=== PATIENT | male | born 1950 ===

== ENCOUNTER 2022-06-07 12:23 | Inpatient (IN) | payer OTHER ==
[2022-06-07] MEDS ORDERED: ALBUTEROL 2.5 MG/3 ML NEB SOL NEB PRN (13:59)
[2022-06-07] MEDS ORDERED: QUETIAPINE 25 MG TAB PO PRN (14:12)
[2022-06-07] MEDS ORDERED: chlordiazePOXIDE HCl 25 MG CAP PO PRN (14:15)
[2022-06-07] MEDS ORDERED: MAGNESIUM HYDROXIDE 8% 30 ML PO PRN (14:17)
[2022-06-07 17:48] VITALS: BMI 18.1
[2022-06-07 18:59] LABS: Specific Gravity 1.011 (1.005-1.030); Urine Bacteria None Seen /HPF (<20); Urine Bilirubin NEGATIVE (Negative); Urine Blood Negative (Negative); Urine Clarity Clear (Clear); Urine Color Light-Yellow (Yellow); Urine Glucose NEGATIVE (Negative); Urine Mucus Slight /HPF (None Seen); Urine Protein NEGATIVE (Negative); Urine RBC <5 /HPF (None Seen); Urine Urobilinogen Normal (Normal)
[2022-06-07] MEDS: DOXYCYCLINE 100 MG CAP PO SCH (19:45)
[2022-06-07] MEDS: TAMSULOSIN 0.4 MG SR CAP PO SCH (19:45)
[2022-06-07] MEDS: GUAIFENESIN 600 MG SA TAB PO SCH (19:45)
[2022-06-07] MEDS: DOCUSATE NA 100 MG CAP PO SCH (19:45)
--- NOTE | 2022-06-07 23:07 | HP ---
Date of Admission: 06/07/2022 Time Of Service: 1:00 p.m. Chief Complaint: "Fell and broke my right hip." History Of Present Illness: Mr. Knutson is a 72-year-old patient with a history of a remote stroke. The stroke occurred in 2018, and he has recovered completely and also has a history of heavy alcohol use that resulted in him actually falling onto a hard surface and hitting his right hip. The fall oc curred in mid to late April and he was seen in hospital on May 20 and had bipolar hemiarthropla sty. He was noted to be at risk for alcohol withdrawal, received multivitamin, folic acid, hydration , and thiamine along with alcohol withdrawal prophylaxis. Following surgery, he was at a maximal ass istance level for all modalities and was transferred to the swing bed for postop physical therapy. H owever, he did not thrive and he developed a leukocytosis for which infectious disease recommended do xycycline and Levaquin for 7 days. He is currently receiving that. He has comorbid anemia possibly related to chronic alcohol use. As a result of his comorbid conditions, significant anemia and need for multiple antibiotics and maximal assistance, he is determined to be an appropriate candidate for acute inpatient rehabilitation. If he is to be discharged home or in a alf, he would lik ganesh not thrive. Past Medical History: Noted. Prostate hypertrophy, constipation, tobacco dependency. Family History: Noncontributory. Allergies: NO KNOWN DRUG ALLERGIES. Social History: The patient apparently drinks alcohol on a regular basis and heavily. Current Medications: Tylenol 650 every 4 hours as needed, albuterol nebulizer 2.5 mg every 4 hours, Norvasc 2.5 mg daily, vitamin C 500 mg daily, aspirin 81 mg daily, Librium 25 mg 3 times a day, Colac e 100 mg twice daily, Vibramycin 100 mg twice daily, Lovenox 40 mg subcutaneously daily, folic acid 1 mg daily, Mucinex 600 mg twice daily. Levofloxacin 500 mg daily, again end on the , he started o n the . Nicotine patch 21 mg daily, Seroquel 25 mg at bedtime, Senokot S 2 at bedtime, Flomax 0.4 mg daily, thiamine 100 mg daily, Ultram 50 mg daily. Laboratory Studies: His urinalysis done today was completely normal. COVID testing was negative. W elizabeth blood cell count 14.6, hemoglobin 11.7, hematocrit 35.6, platelets 644. Sodium 137, potassium 3 .5, glucose 108, BUN 13, creatinine 0.73. X-ray Imaging: X-ray on the of the chest showed mild lower lobe opacities bilaterally favoring atelectasis and scarring. No evidence of acute cardiopulmonary abnormalities. The very first chest x-ray showed no evidence of cardiopulmonary abnormalities, and on June 01, mild central congestion noted. Review of Systems: Mr. Knutson reports some pain at around 2 to 3 when lying in bed, and up to 7 when standing on the rig ht hip where he has his fracture. Otherwise, he denies pain throughout the rest of his body. He rep orts no recent fevers, chills. Some mild arthralgias and myalgias, but no rash, headache, psychiatri c complaints. No gastrointestinal or genitourinary complaints. No dermatologic complaints. Physical Examination: Vital Signs: Blood pressure of 137/80, pulse 57, respiratory rate 18, temperature 97.6, oxygen satur ation 95%. Weight 129 pounds and 9.6 ounces, height 5 feet 11 inches, BMI 18. General: Mr. Knutson is a 72-year-old patient who is lying in bed, has mild pain in the right hip, bu t in his surgical site, there is some jose in place and these were removed. He is normocephalic a nd atraumatic. Sclerae anicteric. Oropharynx is pink and moist. Neck: Supple. Chest: Clear. Heart: Regular. Extremities: Show no significant edema except slight on the right lower extremity nothing on the lef t. No cyanosis or clubbing. Neurological: He is alert and oriented to situation, place, and person. He does follow commands haresh ropriately. Cranial nerves; no focal deficits there. Motor examination, upper extremities, no focal deficits. He does have a stocking-glove loss light touch temperature in lower extremities. He has some mild pain related weakness in the right proximal upper extremity that is with hip flexion becaus e of the recent surgery. Otherwise, he has good strength in the distal right lower extremity and in the left lower extremity altogether. Coordination is slow, but intact. In terms of his gait, he was able to ambulate 140 feet with contact guard assistance using a rolling walker. Current Level Of Functioning: As noted, he did 140 feet with contact guard assistance using a bill g walker. Emphasis was placed on upright posturing for proper gait mechanics. He did have a kyphoti c posture. He also self propelled a wheelchair with lower extremities 300 feet with physical therapi st in tow. He did stand for pivot transfers with minimal assistance using a rolling walker, did supi ne to stand transfers with minimal assistance for lower extremity assistance required. He was evalua glenn by speech therapy and will be seen on a daily basis. Rehabilitation And Medical Assessment And Plan: Mr. Knutson is a 72-year-old patient with a right hip fracture status post bipolar hemiarthroplasty. He has chronic alcohol use and is on alcohol withdra wal prophylaxis. He has tobacco dependency and is on nicotine patch. He has anemia and has iron sup plementation. He has risk of DVT and is on Lovenox. He does have Senokot for constipation, Tylenol and tramadol for pain. He has Seroquel for sleep at night. He is continuing Vibramycin and Levaquin , total of 7 days for leukocytosis. There is no evidence of urinary tract infection on his urinalysi s here is normal. Chest x-ray does not show pneumonia. Note: His rehabilitation impairment category is 07, orthopedic, right lower extremity fracture, and his impairment group code is 08.11, status post unilateral hip fracture. Etiologic diagnosis; subcap ital right femoral neck fracture with marked deformity. Active comorbidities: Alcohol abuse, dysplasia, hypoxia, and tobacco abuse. Note: Risk of medical complications has included aspiration pneumonia, malnutrition, dehydration, re spiratory distress, cardiopulmonary complications and falls. The active comorbidities are as noted. Impact Of Comorbidities: At this point, his alcohol withdrawal is at this point stable. He is on Li brium, and addition to folic acid, thiamine, multivitamin, his vitals do not show any evidence of wit hdrawal. He will be carefully watched. He also has nicotine dependence. He has had tobacco depende nce. He already has nicotine patch. Rehab Plan: He will have 3.5 hours 5-7 days of physical, occupational, and speech therapy to improve his cognitive functioning, his thinking, judgment, memory, his upper and lower body dressing, transf er and toileting, showering, and ambulating over 500 feet. Goal would be to do that with modified in dependence to independence and up and down 15 steps with modified independence to independence. Note , the patient has a good understanding of his process of admission to the inpatient rehabilitation un it. He has a great potential for improvement while he goes through physical, occupational, and speec h therapy. In addition, services from the Respiratory Department from Nutrition Services, Wound Care , and Psychology will be consulted as necessary. Given his complex condition, medical condition, and his orthopedic condition, it is not safe for him to be discharged to a lower level of care such as a nursing facility. Barriers To Discharge: At this point, his comorbidities are not effectively barriers stopping him fr om doing well discharge. However, his nutrition status will be evaluated. Tobacco dependency status and alcohol dependency status will be managed as noted. Estimated Length Of Stay: Up to 2 weeks. Disposition: Expected to be home. Prognosis: Good. Rehabilitation Goals: Began to be independent with upper and lower body dressing, toileting, to do a ll activities of daily living independently to ambulate over 500 feet independently, up and down 15 s teps independently and to have cognitive functioning to have good judgment, insight, and to stop drin sulema alcohol. I acknowledge that I personally performed a full physical examination on Mr. Knutson within 2 hours of him arriving in the inpatient rehabilitation unit and if determined to him to be able to tolerate th e above course of treatment at an intensive level for the time stated above. A detailed individualiz ed plan of care for him will be completed by hospital day 4, based on his pre-admission screen, history and physical, and the therapy evaluations. PEG Voice ID: [id number]
[2022-06-08 05:39] LABS: Absolute Lymphocytes (CBC) 2.1 K/uL (0.7-4.9); Hematocrit 32.7 % (39.6-49.0); Lymphocytes % 17.1 % (15.3-44.8); MCV 94.2 fL (80-100); MPV 9.4 fL (7.6-11.3); RBC Red Blood Cell Count 3.47 M/uL (4.33-5.43)
[2022-06-08] MEDS: ACETAMINOPHEN 325 MG TABLET PO PRN (05:42)
[2022-06-08 05:53] LABS: Albumin 2.3 g/dL (3.4-5.0); Magnesium 1.9 mg/dL (1.6-2.4); Potassium 3.7 mmol/L (3.5-5.1); Prealbumin 16.6 mg/dL (20-40)
[2022-06-08] MEDS: ENOXAPARIN 40 MG/0.4 ML SQ SCH (07:30)
[2022-06-08] MEDS: NICOTINE 21 MG/PAT TD SCH (08:46)
[2022-06-08] MEDS: DOXYCYCLINE 100 MG CAP PO SCH ×2 (08:48→19:44)
[2022-06-08] MEDS: GUAIFENESIN 600 MG SA TAB PO SCH ×2 (08:48→19:44)
[2022-06-08] MEDS: ASPIRIN EC 81 MG TAB PO SCH (08:48)
[2022-06-08] MEDS: DOCUSATE NA 100 MG CAP PO SCH ×2 (08:48→19:44)
[2022-06-08] MEDS: FOLIC ACID 1 MG TABLET PO SCH (08:48)
[2022-06-08] MEDS: THIAMINE HCL 100 MG TABLET PO SCH (08:49)
[2022-06-08] MEDS: AMLODIPINE 2.5 MG TAB PO SCH (08:49)
[2022-06-08] MEDS: ASCORBIC ACID 500 MG TABLET PO SCH (08:49)
[2022-06-08] MEDS: MULTIVITAMIN TAB PO SCH (08:49)
[2022-06-08] MEDS: levoFLOXacin 500 MG TAB PO SCH (09:48)
--- NOTE | 2022-06-08 10:49 | RAD REPORT ---
EXAM DESCRIPTION: RAD - Barium Swallow Modified - 06/08/2022 10:36 am CLINICAL HISTORY: CVA, COUGHING FINDINGS: ADMINISTERED: THIN, NECTAR, PUDDING, SOFT SOLID, REGULAR FINDINGS: Laryngeal penetration - Cleared with thin by straw No aspiration No other issues. swallow with in functional limits Fluoroscopy time 1.5 minutes. One fluoroscopic spot image obtained
[2022-06-08] MEDS ORDERED: ALBUTEROL 2.5 MG/3 ML NEB SOL NEB PRN (12:00)
[2022-06-08] MEDS: TAMSULOSIN 0.4 MG SR CAP PO SCH (19:44)
[2022-06-08] MEDS: ENSURE ENLIVE 237 ML CAN PO SCH (19:44)
--- NOTE | 2022-06-08 19:50 | PN ---
Date of Progress Note: 06/08/2022 Time Of Service: 1 p.m. Subjective: Mr. Knutson is doing well since his pain in the right hip where he had a fracture and chico gical repair, is down from about 7 to a 5 and is improving even as he ambulates. He has no new compl aints. Review of Systems: No fevers, chills, nausea, vomiting, mild myalgias, arthralgias. No rash, headache, weight change. No psychiatric issues. Physical Examination: Vital Signs: Blood pressure 134/71, pulse 88, respiratory rate 16, temperature 97.7, oxygen saturati on 93%. Weight 129 pounds, height 5 feet 11 inches, BMI 18. General: Mr. Knutson is ambulating with the physical therapist. He had walker, therapist walking beh ind. There is a chair if he needs to rest. He is doing well. HEENT: He is normocephalic, atraumatic. Sclerae are anicteric. Oropharynx is moist. Neck: Supple. Chest: Clear. Heart: Regular. Extremities: Show no edema, cyanosis. There is good hemostasis of the right hip surgical site. Sta ples have been removed. Laboratory Studies: White blood cell count 12.1 with neutrophils normal at 70, lymphocytes 17.1, hem oglobin 11.0, hematocrit 32.7. Chemistry: Sodium 140, potassium 3.7, chloride 98, carbon dioxide 25 , BUN 10, creatinine 0.8, prealbumin 16.5, albumin 2.3. Urinalysis normal. COVID-19 test is normal and is negative. X-ray Imaging: Today, he had a modified barium swallow study done. The study showed no aspiration, no other issues. Swallowing was within normal limits. Medications: Tylenol 650 every 4 hours as needed, albuterol nebulizer 2.5 mg every 4 hours as needed , Norvasc 2.5 mg daily, ascorbic acid or vitamin C 500 mg daily, aspirin 81 mg daily, Librium 25 mg 3 times daily as needed for agitation, Colace 100 mg twice daily, Lovenox 40 mg subcutaneously daily, folic acid 1 mg daily, guaifenesin 600 mg twice daily, Levaquin 5 mg daily, will end on 06/11/2022. Lidocaine patch to the right thigh daily, milk of magnesia 30 mL twice daily as needed, Centrum Silve r 1 tablet daily, nicotine patch 21 mg topically applied patch daily, Ensure Enlive 237 mL twice maricruz y, Seroquel 25 mg at bedtime, Senokot-S 2 at bedtime, Flomax 0.4 mg at bedtime, thiamine 100 mg daily , Ultram 50 mg every 6 hours as needed. Current Level Of Functioning: Currently, Mr. Knutson is able to ambulate 100 feet twice, 150 feet twi ce, and 250 was a contact guard assistance using a rolling walker. Mobilized a wheelchair 250 feet w ith upper extremity for strength and endurance. He did multiple stand and pivot transfers with conta ct guard assistance using a rolling walker. The speech pathologist did note in terms of his modified barium swallow, had a regular diet with thin liquids and no straw will be recommended as he did very well with the modified barium swallow study. Noted he demonstrated temporal and spatial orientation with use of external cues with 75% accuracy. He did verbal rehearsal to recall 2 of 3 pictures on f irst attempt and 3 of 3 on second and fourth attempts using space retrieval. Progress Towards Rehabilitation Goals: He is making excellent progress towards his goals of becoming independent with upper lobe while dressing, transferring, toileting, showering, ambulating 500 feet in modified independence and should be able to go up and down 15 steps with modified independence. Assessment And Plan: Mr. Knutson is a -puth-pek patient with right hip fracture, status pos t bipolar hemiarthroplasty, was doing very well. He has comorbid chronic alcohol use with potential alcohol withdrawal, which is much pass at this point. He has tobacco dependency that can have withdr awal via nicotine patch for that. He has anemia. He is on iron supplementation. He has DVT risk. He is on Lovenox. He has Senokot for constipation. Tylenol and tramadol for pain. He has Seroquel for insomnia. He does have Levaquin and tobramycin to continue for leukocytosis that will be done fo r a total of 7 days. Plan: Continue with physical, occupational, and speech therapy as noted. Continue with management of comorbid conditions as noted. Comorbidities That Impact His Rehabilitation Process: 1.At this point, risk of alcohol withdrawal and tobacco withdrawal is there, but those are mitigated . 2.There is pain from his right hip fracture that is mitigated. 3.He has leukocytosis which is noted while he is here and he will continue antibiotics, and also has anemia, continue iron supplementation and nutrition. LB/MODL Voice ID: [id number] Report ID: [id number]
[2022-06-09] MEDS: ACETAMINOPHEN 325 MG TABLET PO PRN (05:37)
[2022-06-09] MEDS: ENOXAPARIN 40 MG/0.4 ML SQ SCH (07:38)
[2022-06-09] MEDS: LIDOCAINE 4% PATCH TOP SCH (08:26)
[2022-06-09] MEDS: FOLIC ACID 1 MG TABLET PO SCH (08:26)
[2022-06-09] MEDS: ASPIRIN EC 81 MG TAB PO SCH (08:26)
[2022-06-09] MEDS: levoFLOXacin 500 MG TAB PO SCH (08:26)
[2022-06-09] MEDS: DOCUSATE NA 100 MG CAP PO SCH ×2 (08:27→19:58)
[2022-06-09] MEDS: AMLODIPINE 2.5 MG TAB PO SCH (08:27)
[2022-06-09] MEDS: GUAIFENESIN 600 MG SA TAB PO SCH ×2 (08:27→19:59)
[2022-06-09] MEDS: ASCORBIC ACID 500 MG TABLET PO SCH (08:27)
[2022-06-09] MEDS: DOXYCYCLINE 100 MG CAP PO SCH ×2 (08:27→19:59)
[2022-06-09] MEDS: THIAMINE HCL 100 MG TABLET PO SCH (08:27)
[2022-06-09] MEDS: MULTIVITAMIN TAB PO SCH (08:27)
[2022-06-09] MEDS: NICOTINE 21 MG/PAT TD SCH (08:28)
--- NOTE | 2022-06-09 08:28 | P.RH.PN ---
Estimated Length of Stay: 12 Expected Discharge Date: 06/19/22 Discharge Disposition Plan: Home Family Support: Yes [facility] Goal: Mobility, Transfers, Self Care Vital Signs: Last Vital Signs Temp 97.6 F 06/09/22 07:30 Pulse 95 H 06/09/22 07:30 Resp 18 06/09/22 07:30 BP 109/71 06/09/22 07:30 Pulse Ox 95 06/09/22 07:30 Laboratory: Laboratory Last Values WBC 12.10 K/uL (4.3-10.9) H 06/08/22 05:09 RBC 3.47 M/uL (4.33-5.43) L 06/08/22 05:09 Hgb 11.0 g/dL (13.6-17.9) L 06/08/22 05:09 Hct 32.7 % (39.6-49.0) L 06/08/22 05:09 MCV 94.2 fL (80-100) 06/08/22 05:09 MCH 31.7 pg (27.0-35.0) 06/08/22 05:09 MCHC 33.6 g/dL (32.0-36.0) 06/08/22 05:09 RDW 14.7 % (12.1-15.2) 06/08/22 05:09 Plt Count 678 K/uL (152-406) H 06/08/22 05:09 MPV 9.4 fL (7.6-11.3) 06/08/22 05:09 Neutrophils % 70.0 % (41.7-73.7) 06/08/22 05:09 Lymphocytes % 17.1 % (15.3-44.8) 06/08/22 05:09 Monocytes % 9.4 % (3.3-12.3) 06/08/22 05:09 Eosinophils % 2.5 % (0-4.4) 06/08/22 05:09 Basophils % 1.0 % (0-1.3) 06/08/22 05:09 Absolute Neutrophils 8.5 K/uL (1.8-8.0) H 06/08/22 05:09 Absolute Lymphocytes 2.1 K/uL (0.7-4.9) 06/08/22 05:09 Absolute Monocytes 1.1 K/uL (0.1-1.3) 06/08/22 05:09 Absolute Eosinophils 0.3 K/uL (0-0.5) 06/08/22 05:09 Absolute Basophils 0.1 K/uL (0-0.5) 06/08/22 05:09 Sodium 140 mmol/L (136-145) 06/08/22 05:09 Potassium 3.7 mmol/L (3.5-5.1) 06/08/22 05:09 Chloride 108 mmol/L (98-107) H 06/08/22 05:09 Carbon Dioxide 25 mmol/L (21-32) 06/08/22 05:09 Anion Gap 10.7 mEq/L (5.0-15.0) 06/08/22 05:09 BUN 10 mg/dL (7-18) 06/08/22 05:09 Creatinine 0.81 mg/dL (0.70-1.30) 06/08/22 05:09 Est GFR (CKD-EPI) 94 ml/min (=/>90) 06/08/22 05:09 Glucose 108 mg/dL (74-106) H 06/08/22 05:09 Calcium 8.9 mg/dL (8.5-10.1) 06/08/22 05:09 Magnesium 1.9 mg/dL (1.6-2.4) 06/08/22 05:09 Albumin 2.3 g/dL (3.4-5.0) L 06/08/22 05:09 Prealbumin 16.6 mg/dL (20-40) L 06/08/22 05:09 Urine Color Light-yellow (Yellow) 06/07/22 18:30 Urine Clarity Clear (Clear) 06/07/22 18:30 Urine pH 6.0 (5.0-7.0) 06/07/22 18:30 Ur Specific Humphrey 1.011 (1.005-1.030) 06/07/22 18:30 Glucose (UA)(Auto) Negative (Negative) 06/07/22 18:30 Urine Ketones Negative (Negative) 06/07/22 18:30 Urine Blood Negative (Negative) 06/07/22 18:30 Urine Nitrite Negative (Negative) 06/07/22 18:30 Urine Bilirubin Negative (Negative) 02/08/23 18:30 Urine Urobilinogen Normal (Normal) 06/07/22 18:30 Ur Leukocyte Esterase Negative Ghada/uL (Negative) 06/07/22 18:30 Urine RBC <5 /HPF (None Seen) 06/07/22 18:30 Urine WBC <5 /HPF (<5) 06/07/22 18:30 Ur Squamous Epith Cells None seen /HPF (None Seen) 06/07/22 18:30 Urine Bacteria None seen /HPF (<20) 06/07/22 18:30 Urine Mucus Slight /HPF (None Seen) 06/07/22 18:30 Urine Culture Reflexed Not needed 06/07/22 18:30 Urine Total Protein Negative (Negative) 06/07/22 18:30 SARS-CoV-2 Rap RNA(RT-PCR) Negative (NEGATIVE) 06/07/22 13:30 Weight: 129 lb 9.6 oz Wound Present: No Closed Surgical Incision Present: Yes Negative Pressure Wound Therapy Present: No Physician Update: His WBC is mildly elevated to 12.1. He is on two antibiotics. His pain is well managed in the right hip with pain patch. He did well with MBS. He has moderate memory loss with MMSE 21/30. Possible secondary to chronic alcohol use. Ambulating 250' with contact guard assistance. Doing well with upper and lower body dressing. He will likely require assistance with safety awareness. Summary: Patient's care plan and jail goals have been reviewed and revised as necessary. Please see the Rehabilitation Signature page for all necessary signatures.
[2022-06-09] MEDS: ENSURE ENLIVE 237 ML CAN PO SCH ×2 (08:29→19:58)
[2022-06-09] MEDS: TAMSULOSIN 0.4 MG SR CAP PO SCH (19:59)
[2022-06-10] MEDS: ENOXAPARIN 40 MG/0.4 ML SQ SCH (07:43)
[2022-06-10] MEDS: LIDOCAINE 4% PATCH TOP SCH (08:13)
[2022-06-10] MEDS: NICOTINE 21 MG/PAT TD SCH (08:13)
[2022-06-10] MEDS: DOCUSATE NA 100 MG CAP PO SCH ×2 (08:13→19:07)
[2022-06-10] MEDS: MULTIVITAMIN TAB PO SCH (08:14)
[2022-06-10] MEDS: ASPIRIN EC 81 MG TAB PO SCH (08:14)
[2022-06-10] MEDS: GUAIFENESIN 600 MG SA TAB PO SCH ×2 (08:14→19:07)
[2022-06-10] MEDS: DOXYCYCLINE 100 MG CAP PO SCH ×2 (08:14→19:07)
[2022-06-10] MEDS: AMLODIPINE 2.5 MG TAB PO SCH (08:15)
[2022-06-10] MEDS: levoFLOXacin 500 MG TAB PO SCH (08:15)
[2022-06-10] MEDS: FOLIC ACID 1 MG TABLET PO SCH (08:15)
[2022-06-10] MEDS: THIAMINE HCL 100 MG TABLET PO SCH (08:15)
[2022-06-10] MEDS: ASCORBIC ACID 500 MG TABLET PO SCH (08:15)
[2022-06-10] MEDS: ENSURE ENLIVE 237 ML CAN PO SCH ×2 (08:40→19:08)
[2022-06-10] MEDS: TAMSULOSIN 0.4 MG SR CAP PO SCH (19:07)
[2022-06-10] MEDS: TRAMADOL HCL 50 MG TAB PO PRN (19:13)
[2022-06-11] MEDS: ENOXAPARIN 40 MG/0.4 ML SQ SCH (08:04)
[2022-06-11] MEDS: GUAIFENESIN 600 MG SA TAB PO SCH ×2 (08:05→19:28)
[2022-06-11] MEDS: AMLODIPINE 2.5 MG TAB PO SCH (08:05)
[2022-06-11] MEDS: THIAMINE HCL 100 MG TABLET PO SCH (08:05)
[2022-06-11] MEDS: DOXYCYCLINE 100 MG CAP PO SCH ×2 (08:05→19:28)
[2022-06-11] MEDS: ASCORBIC ACID 500 MG TABLET PO SCH (08:05)
[2022-06-11] MEDS: DOCUSATE NA 100 MG CAP PO SCH ×2 (08:05→19:28)
[2022-06-11] MEDS: ASPIRIN EC 81 MG TAB PO SCH (08:05)
[2022-06-11] MEDS: FOLIC ACID 1 MG TABLET PO SCH (08:06)
[2022-06-11] MEDS: NICOTINE 21 MG/PAT TD SCH (08:06)
[2022-06-11] MEDS: levoFLOXacin 500 MG TAB PO SCH (08:06)
[2022-06-11] MEDS: MULTIVITAMIN TAB PO SCH (08:06)
[2022-06-11] MEDS: LIDOCAINE 4% PATCH TOP SCH (08:06)
[2022-06-11] MEDS: ENSURE ENLIVE 237 ML CAN PO SCH ×2 (08:07→19:39)
[2022-06-11] MEDS: TAMSULOSIN 0.4 MG SR CAP PO SCH (19:28)
[2022-06-11] MEDS: DOCUSATE NA/SENNA CONC 1 TAB PO PRN (19:28)
[2022-06-12] MEDS: ENOXAPARIN 40 MG/0.4 ML SQ SCH (07:24)
[2022-06-12] MEDS: THIAMINE HCL 100 MG TABLET PO SCH (07:58)
[2022-06-12] MEDS: FOLIC ACID 1 MG TABLET PO SCH (07:58)
[2022-06-12] MEDS: DOCUSATE NA 100 MG CAP PO SCH ×2 (07:58→19:34)
[2022-06-12] MEDS: GUAIFENESIN 600 MG SA TAB PO SCH ×2 (07:58→19:34)
[2022-06-12] MEDS: ASPIRIN EC 81 MG TAB PO SCH (07:58)
[2022-06-12] MEDS: LIDOCAINE 4% PATCH TOP SCH (07:58)
[2022-06-12] MEDS: NICOTINE 21 MG/PAT TD SCH (07:58)
[2022-06-12] MEDS: ASCORBIC ACID 500 MG TABLET PO SCH (07:59)
[2022-06-12] MEDS: MULTIVITAMIN TAB PO SCH (07:59)
[2022-06-12] MEDS: AMLODIPINE 2.5 MG TAB PO SCH (07:59)
[2022-06-12] MEDS: ACETAMINOPHEN 325 MG TABLET PO PRN (08:00)
[2022-06-12] MEDS: ENSURE ENLIVE 237 ML CAN PO SCH ×2 (09:09→19:34)
[2022-06-12] MEDS: TAMSULOSIN 0.4 MG SR CAP PO SCH (19:34)
--- NOTE | 2022-06-12 22:32 | PN ---
Date of Progress Note: 06/12/2022 Qnaj-[id number]-Xggf Visit Time Of Service: 1 p.m. Subjective: Mr. Knutson is resting in bed in between physical therapy sessions. He has no new compla ints. He reports right hip surgical site is not very painful, especially as he is lying in bed, but even when ambulating it is well managed. He has no other complaints. Review of Systems: No fevers or chills. Mild arthralgias noted, but no significant pain at the right hip. Mild myalgia s in the right side, but otherwise unremarkable in terms of muscle or joint pain. No rash or headach e. No fever. No psychiatric issues. Physical Examination: Vital Signs: Blood pressure 133/68, pulse of 95, respiratory rate 18, temperature 98.1, and oxygen s aturation 93%. General: Mr. Knutson is resting in bed. He is in no significant distress. HEENT: He appears normocephalic, atraumatic. Sclerae anicteric. Oropharynx is moist. Neck: Supple. Chest: Clear. Heart: Regular. Extremities: No significant edema or cyanosis. Neurological: He has no focal deficits. Laboratory Studies: No new laboratory studies since . White blood cell count was 12.1 and he moglobin 11. Chemistries unchanged since the , it is actually not done since the . Prealbumin was 16.3, albumin 2.3, and glucose 108. X-ray/imaging: No additional studies. He did have modified barium swallow, which was recorded previ ously. Medications: Unchanged. Norvasc 2.5 mg daily, vitamin C 500 mg daily, aspirin 81 mg daily, Librium 25 mg 3 times daily, Colace 100 mg twice daily, folic acid 1 mg daily, Lovenox 40 mg subcutaneously d aily, nicotine patch 21 mg transdermal daily, Flomax 0.4 mg at bedtime, Senokot-S 2 at bedtime, vitam in B1 100 mg daily, and tramadol 50 mg as needed at bedtime. Current Functional Status: Currently he ambulated 75 feet, 100 feet, another 250 feet twice another 350 feet twice with standby assistance using a rolling walker. He ascended and descended 15 steps us ing both hand rails independently and he did that twice. He also performed multiple stand and pivot transfers with standby assistance using a rolling walker. He did supine to sit transfers with standb y assistance. With speech therapy, he ate one third of his protein, no vegetable starch, and 100% of his desert. He had no overt swallowing issues. No evidence of aspiration and orally he cleared all food with his meals. Progress With His Rehabilitation Goals: He is making excellent progress towards his goals of becomin g independent with his mobilization, transfers, and ambulation of at least 250 feet to 500 feet with independence and going up and down 15 steps with independence. Assessment: Mr. Knutson is a 72-year-old patient in the rehabilitation unit with right hip fracture, tobacco dependency, alcohol dependency, anemia, and leukocytosis who is doing very well with his phys ical, occupational, and speech therapy. Plan: 1.Continue with physical, occupational, and speech therapy. 2.Continue with nicotine patch to avert tobacco withdrawal. 3.Continue with Librium and actually plan to taper that off with thiamine for alcohol withdrawal pro phylaxis. 4.He completed 2 antibiotics for his leukocytosis. 5.Continue iron supplementation. Comorbidities That Continue To Impact Rehabilitation Progress: At this point, he does not have any s ignificant impairments in his ability to progress and do very well in rehabilitation. LB/MODL Voice ID: [id number] Report ID: [id number]
[2022-06-13] MEDS: LIDOCAINE 4% PATCH TOP SCH (07:20)
[2022-06-13] MEDS: ENOXAPARIN 40 MG/0.4 ML SQ SCH (07:20)
[2022-06-13] MEDS: NICOTINE 21 MG/PAT TD SCH (07:20)
[2022-06-13] MEDS: AMLODIPINE 2.5 MG TAB PO SCH (07:29)
[2022-06-13] MEDS: ASPIRIN EC 81 MG TAB PO SCH (07:29)
[2022-06-13] MEDS: DOCUSATE NA 100 MG CAP PO SCH ×2 (07:29→19:28)
[2022-06-13] MEDS: GUAIFENESIN 600 MG SA TAB PO SCH ×2 (07:29→19:28)
[2022-06-13] MEDS: MULTIVITAMIN TAB PO SCH (07:29)
[2022-06-13] MEDS: FOLIC ACID 1 MG TABLET PO SCH (07:29)
[2022-06-13] MEDS: ASCORBIC ACID 500 MG TABLET PO SCH (07:29)
[2022-06-13] MEDS: THIAMINE HCL 100 MG TABLET PO SCH (07:30)
[2022-06-13] MEDS: chlordiazePOXIDE HCl 25 MG CAP PO SCH (07:31)
[2022-06-13] MEDS: ENSURE ENLIVE 237 ML CAN PO SCH ×2 (07:31→19:29)
[2022-06-13] MEDS: ACETAMINOPHEN 325 MG TABLET PO PRN (18:20)
[2022-06-13] MEDS: TAMSULOSIN 0.4 MG SR CAP PO SCH (19:28)
--- NOTE | 2022-06-13 22:50 | PN ---
Date of Progress Note: 06/13/2022 [id number] Progress Note Visit Time Of Service: 1 p.m. Subjective: Mr. Knutson is resting well in bed between therapy sessions. He is actually doing very w ell with his mobilization. Denies pain while resting in bed and while ambulating at most pain is 4. He has no drainage or loss of integrity of the right hip surgical site. He has no new complaints. Review of Systems: No significant changes in terms of myalgias or arthralgias. No fevers, chills, nausea, or vomiting. No rash. No other complaints. Physical Examination: Vital Signs: Blood pressure 138/76, pulse is 105, respiratory rate 18, temperature 98, and oxygen sa turation 93% on room air. General: Mr. Knutson is resting comfortably. HEENT: He is normocephalic, atraumatic. He appears to have a gallardo, but is not necessarily unkempt. Neurologic: He does not have any focal weakness in upper and lower extremities. Extremities: No significant edema in the upper and lower extremities. Laboratory Studies: No new laboratory studies. X-ray/imaging: No new x-ray or imaging. Medications: His Librium has been cut back from 3 times daily to 25 mg daily with a plan of tapering him off Librium prior to his discharge within the next 3 days. He otherwise continues all other med ications. Current Level Of Functioning: Today he ambulated 350 feet twice, 250 feet twice, and another 150 twi ce with standby assistance using a rolling walker and with cues. He ascended and descended 15 steps with handrails with independence and did that twice. With speech, he tolerated 70% of his regular di et with thin liquids and no overt signs of aspiration. He is excited about going home and voiced gurpreet t to speech pathologist. Progress Towards Rehabilitation Goals: He is making excellent progress towards his goals of becoming independent with lower body dressing, transferring, toileting, showering, and ambulating over 500 fe et with independence going up and down 15 steps with independence. Assessment: Mr. Knutson is a 72-year-old patient in the rehabilitation unit with right hip fracture w ho is doing excellent from that standpoint. His comorbidities are tobacco and alcohol dependency, an emia, leukocytosis which has improved and he has completed his antibiotics. Again, making excellent progress with physical and occupational therapy. Plan: 1.Continue physical and occupational therapy. 2.We will taper off Librium over next 3 days. 3.Continue thiamine and folic acid for alcohol withdrawal. 4.Continue nicotine patch. 5.Continue iron supplementation. 6.Continue nutrition supplementation. Comorbid Conditions That Continue To Impact His Rehabilitation Process: At this point, he is doing v christianne well and there are no negative conditions impacting his rehabilitation progress and course toward s doing very well in the clinic and becoming independent. MITZI/ESTELA Voice ID: [id number] Report ID: [id number]
[2022-06-14] MEDS: ENSURE ENLIVE 237 ML CAN PO SCH ×2 (07:18→19:05)
[2022-06-14] MEDS: ENOXAPARIN 40 MG/0.4 ML SQ SCH (07:18)
[2022-06-14] MEDS: LIDOCAINE 4% PATCH TOP SCH (07:19)
[2022-06-14] MEDS: chlordiazePOXIDE HCl 25 MG CAP PO SCH (07:19)
[2022-06-14] MEDS: GUAIFENESIN 600 MG SA TAB PO SCH ×2 (07:19→19:05)
[2022-06-14] MEDS: NICOTINE 21 MG/PAT TD SCH (07:19)
[2022-06-14] MEDS: DOCUSATE NA 100 MG CAP PO SCH ×2 (07:19→19:05)
[2022-06-14] MEDS: FOLIC ACID 1 MG TABLET PO SCH (07:20)
[2022-06-14] MEDS: ASPIRIN EC 81 MG TAB PO SCH (07:20)
[2022-06-14] MEDS: THIAMINE HCL 100 MG TABLET PO SCH (07:20)
[2022-06-14] MEDS: ASCORBIC ACID 500 MG TABLET PO SCH (07:20)
[2022-06-14] MEDS: AMLODIPINE 2.5 MG TAB PO SCH (07:20)
[2022-06-14] MEDS: MULTIVITAMIN TAB PO SCH (07:20)
[2022-06-14] MEDS: ACETAMINOPHEN 325 MG TABLET PO PRN (12:08)
[2022-06-14] MEDS: TAMSULOSIN 0.4 MG SR CAP PO SCH (19:05)
--- NOTE | 2022-06-14 22:04 | PN ---
Date of Progress Note: 06/14/2022 Time Of Service: 1:00 p.m. Subjective: Mr. Knutson is in the gym, doing very well with his therapy. He has no complaints. He i s happy about the possibility of going home on Sunday. He said his daughter came by and she will hel p him in a week or so as he is discharged home. He denies any pain at the right hip surgical site. No drainage from that site. Review of Systems: He has mild pain in the right hip, but he ambulates otherwise. Zero pain when lying down. He has no fevers or chills. No nausea, vomiting. No rash. No psychiatric issues. Physical Examination: Vital Signs: Blood pressure 128/69, pulse of 94, respiratory rate 16, temperature 97.8, oxygen satur ation 96%. General: Mr. Knutson is doing well in the gym. He is in no acute distress. HEENT: He is normocephalic, atraumatic. Sclerae anicteric. Oropharynx is pink and moist. Neck: Supple. Chest: Clear. Heart: Regular rate. No significant edema or cyanosis. Neuro: He has no focal neurologic deficits, just mild pain limitations due to the right hip fracture and surgical repair. Laboratory Studies: No new laboratory studies except this COVID-19 test again today is negative. It is a second negative test. X-ray Imaging: No new x-ray imaging. Medications: His medications have not changed. He is on Norvasc for hypertension, aspirin 81 mg radha ly for stroke risk reduction, Lovenox 40 mg daily for DVT risk reduction. There is a nicotine patch, thiamine, and Librium will be stopped prior to him going home. Current Level Of Functioning: Currently ambulated 150 feet 3 times, 250 feet twice, and 350 feet twi ce with a rolling walker independently. He ascended and descended 20 steps twice with bilateral hand rails and also another 15 steps bilaterally with both handrails. He is performing his occupational t herapy with independence that is including dressing, transferring, and showering. With speech, he is doing well. He consumes 75% of his lunch without overt aspiration. He did require some minimum ass istance in terms of visual cues. Progress Towards His Rehabilitation Goals: Eyes made excellent progress towards his goals of becomin g independent with upper and lower body dressing, transferring, toileting, showering, and ambulating now 500 feet with independence. He is up and down 20 steps now with independence. Assessment: Mr. Knutson is a 72-year-old patient in the rehabilitation unit with right hip fracture. He was doing very well with all of his therapy. He does have stable comorbidities of tobacco and al cohol dependency, anemia, leukocytosis that has improved, completed antibiotics. Also he is now off Librium. Plan: 1.Continue physical and occupational therapy with plan for full independence with all modalities. 2.Continue thiamine, folic acid, and a nicotine patch. 3.Continue with nutrition and iron supplementation. 4.Continue DVT prophylaxis. 5.Continue with sleep aid and stool softener. Comorbidities That Continue To Impact Rehabilitation Process: At this point, all his comorbidities h ave been well managed and stable and not negatively impacting his rehabilitation progress. LB/MODL Voice ID: [id number] Report ID: [id number]
[2022-06-14] MEDS: TRAMADOL HCL 50 MG TAB PO PRN (22:38)
[2022-06-15 04:32] LABS: Absolute Lymphocytes (CBC) 3.1 K/uL (0.7-4.9); Hematocrit 33.2 % (39.6-49.0); MCV 94.3 fL (80-100); MPV 8.4 fL (7.6-11.3); RBC Red Blood Cell Count 3.53 M/uL (4.33-5.43)
[2022-06-15 04:52] LABS: Albumin 2.7 g/dL (3.4-5.0); Magnesium 2.1 mg/dL (1.6-2.4); Potassium 3.9 mmol/L (3.5-5.1); Prealbumin 23.8 mg/dL (20-40)
[2022-06-15] MEDS: ENOXAPARIN 40 MG/0.4 ML SQ SCH (08:00)
[2022-06-15] MEDS: NICOTINE 21 MG/PAT TD SCH (08:23)
[2022-06-15] MEDS: DOCUSATE NA 100 MG CAP PO SCH ×2 (08:27→20:21)
[2022-06-15] MEDS: AMLODIPINE 2.5 MG TAB PO SCH (08:27)
[2022-06-15] MEDS: FOLIC ACID 1 MG TABLET PO SCH (08:27)
[2022-06-15] MEDS: THIAMINE HCL 100 MG TABLET PO SCH (08:28)
[2022-06-15] MEDS: ASPIRIN EC 81 MG TAB PO SCH (08:28)
[2022-06-15] MEDS: ASCORBIC ACID 500 MG TABLET PO SCH (08:28)
[2022-06-15] MEDS: ACETAMINOPHEN 325 MG TABLET PO PRN (08:28)
[2022-06-15] MEDS: GUAIFENESIN 600 MG SA TAB PO SCH ×2 (08:28→20:21)
[2022-06-15] MEDS: MULTIVITAMIN TAB PO SCH (08:28)
[2022-06-15] MEDS: ENSURE ENLIVE 237 ML CAN PO SCH ×2 (08:29→20:21)
[2022-06-15] MEDS: LIDOCAINE 4% PATCH TOP SCH (08:29)
[2022-06-15] MEDS: APIXABAN 2.5 MG TABLET PO SCH ×2 (08:37→20:21)
[2022-06-15] MEDS ORDERED: APIXABAN 2.5 MG TABLET PO SCH (20:00)
[2022-06-15] MEDS: DOCUSATE NA/SENNA CONC 1 TAB PO PRN (20:21)
[2022-06-15] MEDS: TAMSULOSIN 0.4 MG SR CAP PO SCH (20:21)
--- NOTE | 2022-06-15 21:52 | PN ---
Date of Progress Note: 06/15/2022 [facility] Progress Visit Time Of Service: 1 p.m. Subjective: Mr. Knutson is ambulating with the physical therapist. He is doing very well. He has no new complaints. His strength is improving. Balance, gait, and coordination are also improving. He is happy with this progress so far. His daughter is now in town and she will actually help him as bindu jacinto goes home and she will come for family training. Review of Systems: No fevers, chills, nausea, or vomiting. Very mild pain in the right hip surgical site. He has no ad ditional issues or complaints. Physical Examination: Vital Signs: Blood pressure 140/71, pulse 72, respiratory rate of 16, temperature 97.6, oxygen satur ation 95%. Pain level goes down to low of 2 up to about a 7 as he is ambulating. HEENT: Otherwise, he is normocephalic, atraumatic. Sclerae anicteric. Oropharynx is moist. Neck: Supple. Chest: Clear. Heart: Regular rate. Extremities: No significant edema or cyanosis. Neurologic: No focal deficits. Laboratory Studies: White blood cell count normal at 9.8 and on the 9th, it was 12.1 and hemoglobin 11.6. Chemistry: Sodium 138, potassium 3.9, chloride 109, carbon dioxide 25, BUN 18, creatinine 0.8 , prealbumin 23.8 that is up from 16.6 on the 9th, albumin 2.7 up from 2.3 on the 9th. A repeat COVI D test yesterday was negative. X-ray/imaging: No new x-ray or imaging. Medications: Tylenol 650 mg every 4 hours as needed, albuterol nebulizer 2.5 mg every 4 hours as nee ded, Norvasc 2.5 mg daily, Eliquis 2.5 mg twice daily, vitamin C 500 mg daily, aspirin 81 mg daily, C olace 100 mg twice daily, folic acid 1 mg daily, guaifenesin 600 mg twice daily as needed, lidocaine patch 1 patch to the right thigh as needed, Centrum 1 tablet daily, milk of magnesia 30 mL twice maricruz y as needed, nicotine patch 21 mg daily, Seroquel 25 mg at bedtime, Ensure Enlive 237 mg twice daily, Senokot-S 2 tablets at bedtime, Flomax 0.4 mg at bedtime, thiamine 100 mg daily, and tramadol 50 mg every 6 hours as needed. Current Functional Status: Currently he ambulated 150 feet twice, another 250 feet twice, another 35 0 feet twice with a rolling walker independently. He ascended and descended 15 steps with both hands and bilateral hand rails 2 trials covering also 20 steps all independently and he did the 20 steps t wice. Regarding his speech, he demonstrated 100% accuracy with minimum assistance for temporal and s patial orientation. He did recall 3 of 3 words on separate trials. The sequence steps healthcare re lated problem solving was done with 100% accuracy and minimum assistance. He did upper body dressing and set up assistance for showering, but upper body dressing was independent. Lower body dressing d id require set up assistance. Progress Made With Physical Therapy And Progress Towards His Goals: Mr. Knutson has made very good pr ogress towards his goals of becoming independent with all of his activities of daily living with his transfers and with his gait in addition with his ability to go up and down steps. He is now independ ent with all those functioning tasks. Assessment: Mr. Knutson is a 72-year-old patient in the rehabilitation unit with right hip fracture w ho is now independent with all his activities of daily living, his mobilization and is improving well also close to independence with his cognitive functioning. He does have tobacco and alcohol depende ncy that is managed with patch and thiamine. He has completed Librium treatment. He does have resol amara leukocytosis. He has completed antibiotics and he is treated for deep vein thrombosis prophylaxi s, gastroesophageal reflux, and insomnia and his pain is managed with no significant need for narcoti cs. Plan: 1.Continued physical and occupational therapy with plan for discharge this Sunday. 2.Continue thiamine, folic acid, and nicotine patch. 3.Continue with the nutrition program including iron supplementation and protein supplementation. 4.Continue with DVT prophylaxis. 5.Continue with stool softener and treatment of insomnia. Comorbidities That Continue To Impact Rehabilitation Process: He has no comorbid conditions that neg atively impact his ability to improve and do very well in rehabilitation. His plan here is to be dis charged tomorrow afternoon. His daughter will be helping and he likely have able outpatient physical therapy to improve even more. MITZI/ESTELA Voice ID: [id number] Report ID: [id number]
[2022-06-16] MEDS: AMLODIPINE 2.5 MG TAB PO SCH (07:34)
[2022-06-16] MEDS: THIAMINE HCL 100 MG TABLET PO SCH (07:34)
[2022-06-16] MEDS: MULTIVITAMIN TAB PO SCH (07:34)
[2022-06-16] MEDS: FOLIC ACID 1 MG TABLET PO SCH (07:34)
[2022-06-16] MEDS: DOCUSATE NA 100 MG CAP PO SCH ×2 (07:34→20:06)
[2022-06-16] MEDS: ASCORBIC ACID 500 MG TABLET PO SCH (07:34)
[2022-06-16] MEDS: APIXABAN 2.5 MG TABLET PO SCH ×2 (07:35→20:07)
[2022-06-16] MEDS: GUAIFENESIN 600 MG SA TAB PO SCH ×2 (07:35→20:07)
[2022-06-16] MEDS: ACETAMINOPHEN 325 MG TABLET PO PRN (07:35)
[2022-06-16] MEDS: ASPIRIN EC 81 MG TAB PO SCH (07:35)
[2022-06-16] MEDS: LIDOCAINE 4% PATCH TOP SCH (07:36)
[2022-06-16] MEDS: NICOTINE 21 MG/PAT TD SCH (07:36)
--- NOTE | 2022-06-16 08:35 | P.RH.PN ---
Estimated Length of Stay: 12 Expected Discharge Date: 06/17/22 Discharge Disposition Plan: Home Family Support: Yes [facility]dc Goal: Mobility, Transfers, Self Care Vital Signs: Last Vital Signs Temp 96.9 F 06/15/22 19:32 Pulse 95 H 06/16/22 07:44 Resp 14 06/16/22 07:44 BP 155/80 H 06/16/22 07:44 Pulse Ox 95 06/16/22 07:44 Laboratory: Laboratory Last Values WBC 9.80 K/uL (4.3-10.9) 06/15/22 04:10 RBC 3.53 M/uL (4.33-5.43) L 06/15/22 04:10 Hgb 11.6 g/dL (13.6-17.9) L 06/15/22 04:10 Hct 33.2 % (39.6-49.0) L 06/15/22 04:10 MCV 94.3 fL (80-100) 06/15/22 04:10 MCH 32.9 pg (27.0-35.0) 06/15/22 04:10 MCHC 34.9 g/dL (32.0-36.0) 06/15/22 04:10 RDW 15.0 % (12.1-15.2) 06/15/22 04:10 Plt Count 464 K/uL (152-406) H 06/15/22 04:10 MPV 8.4 fL (7.6-11.3) 06/15/22 04:10 Neutrophils % 51.2 % (41.7-73.7) 06/15/22 04:10 Lymphocytes % 32.0 % (15.3-44.8) 06/15/22 04:10 Monocytes % 10.7 % (3.3-12.3) 06/15/22 04:10 Eosinophils % 5.0 % (0-4.4) H 06/15/22 04:10 Basophils % 1.1 % (0-1.3) 06/15/22 04:10 Absolute Neutrophils 5.0 K/uL (1.8-8.0) 06/15/22 04:10 Absolute Lymphocytes 3.1 K/uL (0.7-4.9) 06/15/22 04:10 Absolute Monocytes 1.1 K/uL (0.1-1.3) 06/15/22 04:10 Absolute Eosinophils 0.5 K/uL (0-0.5) 06/15/22 04:10 Absolute Basophils 0.1 K/uL (0-0.5) 06/15/22 04:10 Sodium 138 mmol/L (136-145) 06/15/22 04:10 Potassium 3.9 mmol/L (3.5-5.1) 06/15/22 04:10 Chloride 109 mmol/L (98-107) H 06/15/22 04:10 Carbon Dioxide 25 mmol/L (21-32) 06/15/22 04:10 Anion Gap 7.9 mEq/L (5.0-15.0) 06/15/22 04:10 BUN 18 mg/dL (7-18) 06/15/22 04:10 Creatinine 0.83 mg/dL (0.70-1.30) 06/15/22 04:10 Est GFR (CKD-EPI) 93 ml/min (=/>90) 06/15/22 04:10 Glucose 100 mg/dL (74-106) 06/15/22 04:10 Calcium 9.0 mg/dL (8.5-10.1) 06/15/22 04:10 Magnesium 2.1 mg/dL (1.6-2.4) 06/15/22 04:10 Albumin 2.7 g/dL (3.4-5.0) L 06/15/22 04:10 Prealbumin 23.8 mg/dL (20-40) 06/15/22 04:10 Urine Color Light-yellow (Yellow) 06/07/22 18:30 Urine Clarity Clear (Clear) 06/07/22 18:30 Urine pH 6.0 (5.0-7.0) 06/07/22 18:30 Ur Specific Bear 1.011 (1.005-1.030) 06/07/22 18:30 Glucose (UA)(Auto) Negative (Negative) 06/07/22 18:30 Urine Ketones Negative (Negative) 06/07/22 18:30 Urine Blood Negative (Negative) 06/07/22 18:30 Urine Nitrite Negative (Negative) 06/07/22 18:30 Urine Bilirubin Negative (Negative) 06/07/22 18:30 Urine Urobilinogen Normal (Normal) 06/07/22 18:30 Ur Leukocyte Esterase Negative Ghada/uL (Negative) 06/07/22 18:30 Urine RBC <5 /HPF (None Seen) 06/07/22 18:30 Urine WBC <5 /HPF (<5) 06/07/22 18:30 Ur Squamous Epith Cells None seen /HPF (None Seen) 06/07/22 18:30 Urine Bacteria None seen /HPF (<20) 06/07/22 18:30 Urine Mucus Slight /HPF (None Seen) 06/07/22 18:30 Urine Culture Reflexed Not needed 06/07/22 18:30 Urine Total Protein Negative (Negative) 06/07/22 18:30 SARS-CoV-2 Rap RNA(RT-PCR) Negative (NEGATIVE) 06/14/22 07:40 Weight: 128 lb 11.2 oz Wound Present: No Closed Surgical Incision Present: Yes Negative Pressure Wound Therapy Present: No Physician Update: Labs were reviewed and are stable. Pain is well managed. Incontinent of bladder. He is continent of stool. He is doing well with regular diet including thin liquids. Meets spacial and temporal orientational goals. His memory challenges are likely chronic and related to alcohol. Walking 350' independently, 15 steps independently. Occupational therapy, contact guard jojo villarpura with ADLs and showering. He will require close supervision at home. Summary: Patient's care plan and group home goals have been reviewed and revised as necessary. Please see the Rehabilitation Signature page for all necessary signatures.
[2022-06-16] MEDS: ENSURE ENLIVE 237 ML CAN PO SCH ×2 (10:29→20:07)
[2022-06-16] MEDS: DOCUSATE NA/SENNA CONC 1 TAB PO PRN (20:07)
[2022-06-16] MEDS: TAMSULOSIN 0.4 MG SR CAP PO SCH (20:07)
[2022-06-17] MEDS: LIDOCAINE 4% PATCH TOP SCH (07:20)
[2022-06-17] MEDS: NICOTINE 21 MG/PAT TD SCH (07:24)
[2022-06-17] MEDS: THIAMINE HCL 100 MG TABLET PO SCH (07:43)
[2022-06-17] MEDS: AMLODIPINE 2.5 MG TAB PO SCH (07:44)
[2022-06-17] MEDS: MULTIVITAMIN TAB PO SCH (07:44)
[2022-06-17] MEDS: ASPIRIN EC 81 MG TAB PO SCH (07:44)
[2022-06-17] MEDS: APIXABAN 2.5 MG TABLET PO SCH (07:44)
[2022-06-17] MEDS: ENSURE ENLIVE 237 ML CAN PO SCH (07:44)
[2022-06-17] MEDS: DOCUSATE NA 100 MG CAP PO SCH (07:44)
[2022-06-17] MEDS: FOLIC ACID 1 MG TABLET PO SCH (07:44)
[2022-06-17 07:45] VITALS: BP 142/82
[2022-06-17] MEDS: GUAIFENESIN 600 MG SA TAB PO SCH (07:45)
[2022-06-17] MEDS: ASCORBIC ACID 500 MG TABLET PO SCH (07:45)
[2022-06-17 08:01] VITALS: TEMP 97.8
== END 2022-06-17 12:30 | disposition home health service (06) | DRG 561 ==
LOC: 5TH 13:07
PROVIDERS: ADMIT Psychiatry & Neurology Neurology with Special Qualifications in Child Neurology; ATTEND Psychiatry & Neurology Neurology with Special Qualifications in Child Neurology
DX: S72.001D Fracture of unspecified part of neck of right femur, subsequent encounter for closed fracture with routine healing (principal); D64.89 Other specified anemias; D72.829 Elevated white blood cell count, unspecified; F10.90 Alcohol use, unspecified, uncomplicated; R09.02 Hypoxemia; K59.00 Constipation, unspecified; G47.00 Insomnia, unspecified; M25.50 Pain in unspecified joint; M79.10 Myalgia, unspecified site; F17.200 Nicotine dependence, unspecified, uncomplicated; Z20.822 Contact with and (suspected) exposure to COVID-19
CPT/HCPCS: 36415; 74230; 80048; 81001; 82040; 83735; 84134; 85025; 87086; 87088; 92523; 92526; 92610; 92611; 97010; 97110; 97116; 97129; 97162; 97165; 97530; 97542; J1650; J2001; U0003